=== PATIENT | female | born 1975 | race African-American/Black ===

== ENCOUNTER 2017-08-29 05:53 | Day surgery (SDC) | payer OTHER ==
[~2017-08-29] VITALS: Ht 160 cm; Wt 54.4 kg
[2017-08-29] MEDS ORDERED: ATOR20TA PO (07:04)
[2017-08-29] MEDS ORDERED: ASPI81EC98 PO (07:04)
[2017-08-29] MEDS ORDERED: IBUPROFEN 800 MG TAB PO PRN (07:25)
[2017-08-29] MEDS ORDERED: ACETAMINOPHEN/CODEINE 300/30MG 1 TAB PO PRN (07:25)
[2017-08-29] MEDS ORDERED: ONDANSETRON 4 MG/2 ML VIAL IVP PRN (07:25)
[2017-08-29] MEDS ORDERED: MORPHINE SULFATE 4 MG/ML SYR IM/IVP PRN (07:25)
[2017-08-29] MEDS ORDERED: PROPOFOL 200 MG/20 ML VIAL IV ONE (08:31)
[2017-08-29] MEDS ORDERED: ONDANSETRON 4 MG/2 ML VIAL IVP ONE (08:31)
[2017-08-29] MEDS ORDERED: MIDAZOLAM 2 MG/2 ML VIAL ONE (08:43)
[2017-08-29] MEDS ORDERED: fentaNYL 0.05 MG/ML VIAL ONE (08:43)
[2017-08-29] MEDS ORDERED: MORPHINE SULFATE 2 MG/ML SYR IVP PRN (09:05)
[2017-08-29] MEDS ORDERED: MORPHINE SULFATE 4 MG/ML SYR IVP PRN ×2 (09:05)
[2017-08-29] MEDS ORDERED: MIDAZOLAM 2 MG/2 ML VIAL IV ONE (09:05)
== END 2017-08-29 10:40 | disposition home or self-care, planned readmission (81) ==
LOC: MDS 05:53 → MMU 06:01 → MDS 10:40
PROVIDERS: ATTEND Obstetrics & Gynecology
DX: N95.0 Postmenopausal bleeding (principal); F32.9 Major depressive disorder, single episode, unspecified; Z98.890 Other specified postprocedural states; Z79.899 Other long term (current) drug therapy; Z91.09 Other allergy status, other than to drugs and biological substances
CPT/HCPCS: 36415; 58120; 82948; 84702; J2250; J2405; J2704; J3010; J7120